=== PATIENT | female | born 1995 | race Caucasian/White ===

== ENCOUNTER 2023-11-14 20:59 | Emergency (ER) | payer BC, MEDICAID, SELFPAY ==
[2023-11-14 21:00] VITALS: BP 144/108; PULSE 117; RESP 16; TEMP 37.1; O2SAT 97; BMI 34.2
--- NOTE | 2023-11-14 21:05 | ECG_ITS ---
[facility] Test Date: 2023-11-14 Pat Name: Veronica Baires Department: Room: Gender: Female Mine Analyst: : 1995 Requested By: Emre Merida Order Number: [id number] Maris MD: Kenan Borges M.D. Measurements Intervals [place] Rate: 120 P: 53 IA: 167 QRS: 81 QRSD: 79 T: 20 QT: 338 QTc: 479 Interpretive Statements SINUS TACHYCARDIA NONSPECIFIC T-WAVE ABNORMALITY No previous ECG available for comparison Electronically Signed On 11-15-2023 11:04:46 OPERATIONS OFFICER by Kenan Borges M.D. [id number]
[2023-11-14 21:30] LABS: Basophils # 0.1 10^3/uL (0.0-0.1); Eosinophils # 0.1 10^3/uL (0.0-0.8); Eosinophils % 0.7 %; Hematocrit 40.5 % (36-47); Lymphocytes # 1.5 10^3/uL (0.8-4.8); Lymphocytes % 18.4 %; Mean Corpuscular HGB Conc 34.6 g/dL (30-55); Mean Corpuscular Hemoglobin 27.3 pg (27-33); Mean Corpuscular Volume 78.9 fl (85-98); Monocytes # 0.6 10^3/uL (0.2-0.9); Monocytes % 7.2 %; Neutrophils # 6.01 10^3/uL (1.8-7.7); Neutrophils % 72.2 %; Nucleated Red Blood Cells % 0 %; Platelet Count 248 10^3/cmm (157-399); Red Blood Count 5.13 10^6/uL (3.85-5.65); Red Cell Distribution Width 14.5 % (12.1-15.1); White Blood Count 8.32 10^3/uL (3.29-11.43)
[2023-11-14 21:38] VITALS: BP 150/112; PULSE 115; RESP 21; O2SAT 95
[2023-11-14 21:48] LABS: Troponin(5th) Baseline < 6 ng/L (0-10)
[2023-11-14 21:48] LABS: Add Urine Culture? Yes; Add Urine Microscopic? YES; Bacteria Urine 1+ /hpf; Bilirubin Urine Neg (Negative); Blood Urine 2+ (Negative); Glucose Urine UA Norm (Normal); Ketones Urine Negative (Negative); Leukocyte Esterase Urine 2+ (Negative); Nitrate Urine Negative (Negative); Protein Urine Neg (Negative); RBC Urine 0-4 /hpf (0-2); Specific Gravity, Urine 1.005 (1.005-1.030); Urine Appearance Clear (CLEAR); Urine Color Yellow (Yellow); Urobilinogen Urine Norm (Negative); WBC Urine 15-25 /hpf (0-5); pH Urine 6 (5-7)
--- NOTE | 2023-11-14 21:48 | W.ED.GENADLT ---
HPI - General Adult General: Chief complaint: General Medical Stated complaint: low bp, high hr,headache, dizzy Time Seen by Provider: 11/14/23 21:17 History of Present Illness: Patient presents to the ER with complaints of lightheadedness palpitations tachycardia and headache. Patient states she just feels horrible all over. Patient did start amoxicillin for strep throat today. Patient said her heart rate normally is not 100+ beats a minute like it is upon arrival here where it is 117 bpm. Patient does not states she has chest pain at this time. Patient's blood pressure is elevated at 144/108. Patient was recently started on losartan. She states she not been around anybody with similar complaints. Review of Systems General: Reports: 10 or more systems reviewed and unremarkable except in HPI and below [facility] ED Female Reproductive History: Date of last menstrual period: 10/14/23 Physical Exam Const: COMMON NORMALS: no acute distress, average body habitus, patient oriented x3, no limitations, healthy appearing, alert and well nourished HENMT: COMMON NORMALS: normocephalic, atraumatic, hearing grossly normal bilaterally, EAC's normal, Normal external nose present and moist oral mucous membranes HEAD & SCALP: normocephalic and atraumatic NOSE: Normal external nose present EXTERNAL AUDITORY CANAL: EAC's normal Neck/C-Spine: COMMON NORMALS: full ROM, no lymphadenopathy, supple, no meningeal signs, no JVD and Thyroid normal THYROID: Thyroid normal Chest: COMMONS NORMALS: normal inspection of the chest and normal palpation of entire chest wall Resp: COMMON NORMALS: normal respiratory effort, No retractions, No use of accessory muscles and clear to auscultation bilaterally AUSCULTATION: clear to auscultation bilaterally Cardio: COMMON NORMALS: no JVD, regular rhythm, S1 normal heart sound present, S2 normal heart sound present, No gallops present (Cardio), No clicks present (Cardio), No murmurs present (Cardio) and No rub (Cardio); negative for regular rate (Tachycardic) RATE: abnormal rate (Tachycardic) RHYTHM: regular rhythm HEART SOUNDS: S1 normal heart sound present and S2 normal heart sound present GI: COMMON NORMALS: Normal to inspection, nondistended, normoactive bowel sounds present, Soft to palpation, non-tender, No hepatosplenomegaly present and no masses PALPATION: Yes Soft to palpation and Yes No hepatosplenomegaly present Neuro: COMMON NORMALS: patient oriented x3 SENSORIUM/ORIENTATION: Yes alert MENINGEAL SIGNS: Yes no meningeal signs Course Vital Signs: Vital signs: Vital Signs Temperature 98.7 F 11/14/23 21:00 Pulse Rate 115 H 11/14/23 22:41 Respiratory Rate 14 11/14/23 22:41 Blood Pressure 149/119 11/14/23 22:41 Pulse Oximetry 95 11/14/23 22:41 Oxygen Delivery Me thod Room Air 11/14/23 22:41 MDM - General Adult Medical Decision Making Patient had lab work done included CBC CMP serial EKGs serial troponins urinalysis. All of which was essentially negative except possible urinary tract infection. Patient was tachycardic with a heart rate of 117 on average and hypertensive with a blood pressure approximately 144/108. Patient was given Toradol 30 mg IV push as well as clonidine 0.1 and Cipro 500 mg p.o. Patient was diagnosed with a urinary tract infection, tachycardia, hypertension. Patient should follow-up with her family practice physician within next 7 to 10 days for further evaluation and treatment. Patient may benefit from further workup that includes a change in blood pressure medicine. Differential Diagnosis Strep throat, tachycardia, viral illness, hypertension, palpitation Medical Records I reviewed the patient's medical records. Lab Data I reviewed the patient's lab results. 11/14/23 21:24 11/14/23 21: Laboratory Results WBC 8.32 10^3/uL (3.29-11.43) 11/14/23 21: RBC 5.13 10^6/uL (3.85-5.65) 11/14/23 21: Hgb 14.00 g/dL (11.27-16.99) 11/14/23 21: Hct 40.5 % (36-47) 11/14/23 21: MCV 78.9 fl (85-98) L 11/14/23: MCH 27.3 pg (27-33) 11/14/23 21: MCHC 34.6 g/dL (30-55) 11/14/23 21: RDW 14.5 % (12.1-15.1) 11/14/23 21: Plt Count 248 10^3/cmm (157-399) 11/14/23 21:24 MPV 9.0 fL (7.4-10.4) 11/14/23 21:24 Neut % (Auto) 72.2 % 11/14/23 21: Lymph % (Auto) 18.4 % 11/14/23 21: [place] % (Auto) 7.2 % 11/14/23 21: Eos % (Auto) 0.7 % 11/14/23 21: Baso % (Auto) 1.0 % 11/14/23 21:24 Neut # (Auto) 6.01 10^3/uL (1.8-7.7) 11/14/23: Lymph # (Auto) 1.5 10^3/uL (0.8-4.8) 11/14/23: [place] # (Auto) 0.6 10^3/uL (0.2-0.9) 11/14/23: Eos # (Auto) 0.1 10^3/uL (0.0-0.8) 11/14/23 21: Baso # (Auto) 0.1 10^3/uL (0.0-0.1) 11/14/23: Nucleated RBC % (auto) 0 % 11/14/23: Nucleated RBCs # 0.0 /100WBC 11/14/23 21:24 Sodium 137 mmol/L (136-145) 11/14/23 21:24 Potassium 3.9 mmol/L (3.5-5.1) 11/14/23 21: Chloride 101 mmol/L (98-107) 11/14/23 21:24 Carbon Dioxide 27 mmol/L (22-29) 11/14/23 21:24 Anion Gap 12.9 (5-19) 11/14/23:24 BUN 6 mg/dL (6-20) 11/14/23 21: Creatinine 0.5 mg/dL (0.5-0.9) 11/14/23 21: GFR Calculation 144.9 mL/min (90-130) H 11/14/23 21:24 Glucose 106 mg/dL (65-115) 11/14/23 21: Calculated Osmolality 282 mOsm/kg (285-295) L 11/14/23 21:24 Calcium 9.4 mg/dL (8.5-10.5) 11/14/23 21: Magnesium 1.9 mg/dL (1.7-2.3) 11/14/23 21:24 Total Bilirubin 0.4 mg/dL (0.15-1.2) 11/14/23 21:24 AST 68 U/L (0-32) H 11/14/23 21:24 ALT 60 U/L (0-33) H 11/14/23 21:24 Alkaline Phosphatase 80 U/L (35-105) 11/14/23 21:24 Troponin T Baseline < 6 ng/L (0-10) 11/14/23 21: Troponin T 120 Minute 6.00 ng/L (0-10) 11/14/23 22:58 Delta Troponin T 0.38868 ABS# (0-10) 11/14/23 22:58 Total Protein 7.1 g/dL (6.6-8.7) 11/14/23 21:24 Albumin 4.3 g/dL (3.5-5.2) 11/14/23 21: Globulin 2.8 g/dL (1.3-4.6) 11/14/23 21:24 TSH 3.19 uIU/mL (0.27-4.20) 11/14/23 21:24 Urine Color Yellow (Yellow) 11/14/23 21:35 Urine Appearance Clear (CLEAR) 11/14/23 21:35 Urine pH 6 (5-7) 11/14/23 21:35 Ur Specific [place] 1.005 (1.005-1.030) 11/14/23 21:35 Urine Protein Neg (Negative) 11/14/23 21:35 Urine Glucose (UA) Norm (Normal) 11/14/23 21:35 Urine Ketones Negative (Negative) 11/14/23 21:35 Urine Blood 2+ (Negative) H 11/14/23 21:35 Urine Nitrate Negative (Negative) 11/14/23 21:35 Urine Bilirubin Neg (Negative) 11/14/23 21:35 Urine Urobilinogen Norm mg/dL (Negative) 11/14/23 21:35 Ur Leukocyte Esterase 2+ (Negative) H 11/14/23 21:35 Urine RBC 0-4 /hpf (0-2) H 11/14/23 21:35 Urine WBC 15-25 /hpf (0-5) H 11/14/23 21:35 Ur Squamous Epith Cells 5-10 /hpf (0-5) H 11/14/23 21:35 Amorphous Sediment Not Reportable 11/14/23 21:35 Urine Bacteria 1+ /hpf (NONE) H 11/14/23 21:35 All radiology interpretation(s) finalized by discharge EKG Data EKG 1: I personally reviewed and interpreted this EKG as follows: EKG interpretation date: 11/14/23 EKG interpretation time: 21:05 Prior EKG tracings: not available for review Interpretation: EKG showed ventricular rate 120 bpm, [place] interval 167, QRS duration 79, QTc of 410, sinus tachycardia, nonspecific T wave abnormality EKG 2: I personally reviewed and interpreted this EKG as follows: EKG interpretation date: 11/14/23 EKG interpretation time: 23:46 Prior EKG tracings: available for review Interpretation: EKG showed ventricular rate 116 bpm, [place] interval 165, QRS 81, QTc of 394, sinus tachycardia, nonspecific T wave abnormality Discharge Plan Discharge Patient Disposition: Home Clinical Impression: Tachycardia Urinary tract infection Qualifiers: Urinary tract infection type: acute cystitis Hematuria presence: with hematuria Qualified Code(s): N30.01 - Acute cystitis with hematuria Hypertension Qualifiers: Hypertension type: unspecified Qualified Code(s): I10 - Essential (primary) hypertension Condition: Stable Prescriptions: New ciprofloxacin HCl 500 mg tablet 500 mg PO Q12H Qty: 14 0RF Discharge Orders: Discharge ED (Routine); Ordered 11/15/23 Ordered By: Emre Merida Patient Instructions: Urinary Tract Infection in Women (ED), Hypertension (ED), Tachycardia (ED) Activity Restrictions/Additional Instructions: Please take all medicine as directed. Please follow-up with your family practice physician within the next 7 to 10 days for further evaluation and treatment. Please keep a blood pressure log that includes your pulse and take it to your next appointment. Coding Level of Care Code ED Funeral Arranger for Mabelg Zeinab
[2023-11-14 22:03] LABS: Alanine Aminotransferase 60 U/L (0-33); Albumin Level 4.3 g/dL (3.5-5.2); Alkaline Phosphatase 80 U/L (35-105); Anion Gap 12.9 (5-19); Aspartate Amino Transferase 68 U/L (0-32); Blood Urea Nitrogen 6 mg/dL (6-20); Calcium 9.4 mg/dL (8.5-10.5); Carbon Dioxide 27 mmol/L (22-29); Chloride 101 mmol/L (98-107); Globulin 2.8 g/dL (1.3-4.6); Glomerular Filtration Rate 144.9 mL/min (90-130); Glucose 106 mg/dL (65-115); Magnesium 1.9 mg/dL (1.7-2.3); Osmolality Calculated 282 mOsm/kg (285-295); Potassium 3.9 mmol/L (3.5-5.1); Sodium 137 mmol/L (136-145); Total Bilirubin 0.4 mg/dL (0.15-1.2); Total Protein 7.1 g/dL (6.6-8.7)
[2023-11-14 22:07] LABS: Thyroid Stimulating Hormone 3.19 uIU/mL (0.27-4.20)
[2023-11-14 22:41] VITALS: BP 149/119; PULSE 115; RESP 14; O2SAT 95
[2023-11-14 23:21] LABS: Troponin 5 2HR Delta 0.00001 ABS# (0-10)
[2023-11-14] MEDS: ketorolac 30 mg/mL INJ IVP (23:26)
--- NOTE | 2023-11-14 23:46 | ECG_ITS ---
[facility] Test Date: 2023-11-14 Pat Name: Veronica Baires Department: Room: Gender: Female Chemical Dependency Counselor: : 1995 Requested By: Emre Merida Order Number: [id number] Maris MD: Kenan Borges M.D. Measurements Intervals [place] Rate: 116 P: 47 CO: 165 QRS: 77 QRSD: 81 T: 14 QT: 325 QTc: 453 Interpretive Statements SINUS TACHYCARDIA NONSPECIFIC T-WAVE ABNORMALITY No previous ECG available for comparison Electronically Signed On 11-15-2023 11:07:34 SCOOPING MACHINE TENDER by Kenan Borges M.D. [id number]
[2023-11-15 00:33] VITALS: BP 154/108
[2023-11-15] MEDS: cloNIDine 0.1 mg Tablet PO (00:33)
[2023-11-15] MEDS: ciprofloxacin 500 mg Tablet PO (00:33)
[2023-11-15 00:36] VITALS: BP 154/108; O2SAT 98
== END 2023-11-15 00:40 | disposition home or self-care (01) ==
PROVIDERS: Emergency Provider Emergency Medicine
DX: R00.0 Tachycardia, unspecified (principal); I10 Essential (primary) hypertension; N30.01 Acute cystitis with hematuria
CPT/HCPCS: 36415; 80053; 81001; 83735; 84443; 84484; 85025; 87086; 93005; 96374; 99284; J1885

== ENCOUNTER → 2024-01-13 12:00 | Outpatient (BNVA) | payer BC, MEDICAID, SELFPAY | PROVIDERS: Visit Provider Emergency Medicine | DX: J02.9 Acute pharyngitis, unspecified (principal) | CPT/HCPCS: 87071; 87880 ==